=== PATIENT | female | born 1955 | race Caucasian/White ===

== ENCOUNTER 2020-05-28 14:41 | Outpatient (CLI) | payer MEDICARE, SELFPAY ==
--- NOTE | ~2020-05-28 | MM_ITS ---
EXAMINATION: MM screening fermín BI w lizzy HISTORY: Screening TECHNIQUE: Craniocaudal and mediolateral oblique 3-D tomosynthesis images were obtained and synthetic 2-D images were generated. CAD analysis was submitted and interpreted. COMPARISON: Comparison to multiple prior studies sequentially, with oldest reviewed study dated 01/19. BREAST PARENCHYMAL COMPOSITION: There are scattered areas of fibroglandular density. FINDINGS: There is developing focal asymmetry superiorly in the left breast on MLO view. The right br east is stable without evidence for malignancy. IMPRESSION: 1. New focal left breast asymmetry superiorly on MLO view. 2. Additional mammographic views and possible breast ultrasound are recommended. BI-RADS Category 0: Incomplete: Needs additional imaging evaluation. Reviewed, dictated and finalized at location A. IMPRESSION: 1. New focal left breast asymmetry superiorly on MLO view. 2. Additional mammographic views and possible breast ultrasound are recommended . BI-RADS Category 0: Incomplete: Needs additional imaging evaluation.
--- NOTE | ~2020-05-28 | DEXA_ITS ---
Bone Density Report Name: Gretel Gill Age: 64 Sex: Female Ethnicity: White Date of : 1955 Indication: postmenopausal; Referring Provider: DEEPA MONAHAN Study: Bone densitometry was performed. Exam Date: May 28, 2020 Accession number: [id number] Bone Density: Region BMD T-score Z-score Classification Femoral Neck (Left) 0.550 -2.7 -1.1 Osteoporosis Total Hip (Left) 0.791 -1.2 0.1 Osteopenia Total Hip Bilateral Avg 0.850 -0.8 0.6 Normal Femoral Neck (Right) 0.715 -1.2 0.4 Osteopenia Total Hip (Right) 0.907 -0.3 1.0 Normal World Health Organization criteria for BMD impression classify patients as: Normal (T-score at or above -1.0), Osteopenia (T-score between -1.0 and -2.5), or Osteoporosis (T-score at or below -2.5). 10-year Fracture Risk: FRAX not reported because: Some T-score for Spine Total or Hip Total or Femoral Neck at or below -2.5 Previous Exams: Region Exam Age BMD T-score BMD Change BMD Change Date g/cm2 vs Baseline vs Previous Total Hip(Left) 05/28/2020 64 0.791 -1.2 -0.045(-5.4%)# -0.031(-3.7%)* 01/30/2018 62 0.821 -1.0 -0.015(-1.8%)# -0.015(-1.8%)# 11/19/2015 59 0.836 -0.9 Total Hip(Right) 05/28/2020 64 0.907 -0.3 0.020(2.2%)# 0.031(3.5%)* 01/30/2018 62 0.877 -0.5 -0.011(-1.2%)# -0.011(-1.2%)# 11/19/2015 59 0.887 -0.4 *Denotes significance at 95% confidence level, LSC for Total Hip = 0.027 g/cm2 Impression: The patient has osteoporosis, based on the Left Femoral Neck T-score. The BMD for the Total Hip(Left) decreased, changing by -3.7% since the last DXA exam. Discussion: INCREASED RISK OF FRACTURE. BONE DENSITY IS UNDESIRABLY LOW AT ONE OR MORE SKELETAL SITES, CONSISTENT WITH POSTMENOPAUSAL OSTEOPOROSIS. This patient's lowest T-score meets the World Health Organization's (WHO) criteria for osteoporosis at one or more sites (T-score -2.5 or below). In untreated patients, the risk of osteoporotic fracture increases approximately two-fold for each 1.0 SD decrease in T-score. Low bone density is not the only risk factor for fracture; also consider factors such as patient's age, frailty or poor health, risk of falling, risk of injury, previous osteoporotic fracture, family history of osteoporosis, cigarette smoking, low body weight, etc. Not everyone with low bone mineral density has osteoporosis; osteomalacia and other metabolic bone disorders should also be considered. Patients who have osteoporosis should be evaluated for specific diseases and conditions (secondary causes) that may cause or contribute to bone loss. The [place] [employer] (AACE) and Bety
== END 2020-05-28 14:42 | disposition home or self-care (01) ==
PROVIDERS: PCP Emergency Medicine; Visit Provider Emergency Medicine
DX: Z12.31 Encounter for screening mammogram for malignant neoplasm of breast (principal); R92.8 Other abnormal and inconclusive findings on diagnostic imaging of breast; M81.0 Age-related osteoporosis without current pathological fracture; M85.852 Other specified disorders of bone density and structure, left thigh; M85.851 Other specified disorders of bone density and structure, right thigh
CPT/HCPCS: 77063; 77067; 77080

== ENCOUNTER 2020-07-22 13:26 | Outpatient (CLI) | payer MEDICARE, SELFPAY ==
--- NOTE | ~2020-07-22 | MMUS_ITS ---
EXAMINATION: MM diagnostic mammo unilat LT, US breast LT limited HISTORY: Developing focal asymmetry in left breast on MLO screening view of 05/28/2020 TECHNIQUE: Additional 3-D tomosynthesis images of the left breast were performed and synthetic 2-D im ages were generated. CAD analysis was submitted and interpreted. High resolution limited left upper o uter and lower-outer breast ultrasound was performed. COMPARISON: 05/28/2020 bilateral digital screening mammogram FINDINGS: MAMMOGRAPHIC FINDINGS: A circumscribed oval 5 mm opacity is noted in the lateral left mid breast at mid depth. ULTRASOUND: No suspicious solid lesion or shadowing or vascularity is noted. No cyst is identified. IMPRESSION: 1. Probable benign low-density circumscribed 5 mm opacity in outer mid left breast 2. Diagnostic left mammogram follow-up is recommended in 6 months, with ultrasound if required BI-RADS category 3, probably benign findings. Reviewed, dictated and finalized at location A. IMPRESSION: 1. Probable benign low-density circumscribed 5 mm opacity in outer mid left shellie ast 2. Diagnostic left mammogram follow-up is recommended in 6 months, with ultraso und if required BI-RADS category 3, probably benign findings.
== END 2020-07-22 13:27 | disposition home or self-care (01) ==
LOC: ANHIMG 13:27
PROVIDERS: PCP Emergency Medicine; Visit Provider Emergency Medicine
DX: R92.8 Other abnormal and inconclusive findings on diagnostic imaging of breast (principal)
CPT/HCPCS: 76642; 77065

== ENCOUNTER 2020-08-31 11:00 | Outpatient (CLI) | payer MEDICARE, SELFPAY ==
--- NOTE | ~2020-08-31 | US_ITS ---
EXAMINATION: US right upper quadrant DATE: 08/31/2020 11:41 INDICATION: Liver disease. TECHNIQUE: Multiple grayscale and Doppler ultrasound images of the abdomen were obtained. COMPARISON: CT abdomen and pelvis 02/19/15 FINDINGS: The pancreas is obscured by bowel gas. The liver is normal without focal lesion. There is n ormal flow in main portal vein. The gallbladder is absent. The common duct is normal and measures 5 m m. The spleen is normal in size. Abdominal aorta is normal in caliber. Inferior vena cava is normal. Right kidney measures 8.5 x 4.3 x 4.8 cm. Left kidney measures 8.9 x 3.6 x 4.6 cm. No hydronephrosis. IMPRESSION: 1. Mild atrophy of the kidneys. Reviewed, dictated and finalized at location A.
== END 2020-08-31 11:01 | disposition home or self-care (01) ==
PROVIDERS: PCP Emergency Medicine; Visit Provider Emergency Medicine
DX: K76.9 Liver disease, unspecified (principal)
CPT/HCPCS: 76705

== ENCOUNTER 2021-02-24 13:42 | Outpatient (CLI) | payer MEDICARE, SELFPAY ==
--- NOTE | ~2021-02-24 | MMUS_ITS ---
EXAMINATION: MM diagnostic fermín LT w lizzy, US breast LT limited HISTORY: Six-month follow-up for probably benign left breast mass TECHNIQUE: Craniocaudal, mediolateral, and mediolateral oblique 3-D tomosynthesis images of the left breast were performed and synthetic 2-D images were generated. CAD analysis was submitted and interpr eted. High resolution limited left breast ultrasound was performed. COMPARISON: 07/22/2020, 05/28/2020, 01/30/2018 BREAST PARENCHYMAL COMPOSITION: There are scattered areas of fibroglandular density. FINDINGS: MAMMOGRAPHIC FINDINGS: There is a stable 6 mm oval, equal density mass with indistinct margins at the 3:00 location 8 cm fro m the nipple. No suspicious calcification is identified. ULTRASOUND: There is an approximately mass at the 4:00 location 3 cm from the nipple which has sonographic featur es suggestive of clustered microcysts. IMPRESSION: 1. Possible cluster of microcysts in the left breast. 2. Recommend 6 month follow-up left diagnostic mammogram and ultrasound. BI-RADS category 3, probably benign findings. Reviewed, dictated and finalized at location A. IMPRESSION: 1. Possible cluster of microcysts in the left breast. 2. Recommend 6 month follow-up left diagnostic mammogram and ultrasound. BI-RADS category 3, probably benign findings.
== END 2021-02-24 13:43 | disposition home or self-care (01) ==
LOC: ANHIMG 13:43
PROVIDERS: PCP Emergency Medicine; Visit Provider Emergency Medicine
DX: R92.8 Other abnormal and inconclusive findings on diagnostic imaging of breast (principal)
CPT/HCPCS: 76642; 77061; 77065; G0279

== ENCOUNTER 2021-07-21 08:51 | Outpatient (CLI) | payer MEDICARE, SELFPAY ==
--- NOTE | ~2021-07-21 | XR_ITS ---
XR hip BI wo pelvis DATE: 07/21/2021 09:53 INDICATION: Hip pain. History of bone graft of right leg TECHNIQUE: AP and lateral views of each hip COMPARISON: None FINDINGS: There is deformity of the lateral aspect of the right iliac crest likely due to this being a donor site for clinically reported bone graft. Old healed fracture of right mid femoral shaft. Diffuse osteopenia. Rotatory levoscoliosis and severe degenerative disc disease of the lumbar spine. Mild bilateral hip osteoarthritic arthritis. No fracture, dislocation, avascular necrosis or bone beth truction of either hip is detected. There are some soft tissue calcifications at the hips, greater on the right. IMPRESSION: Rotatory levoscoliosis and severe degenerative disc disease of the lumbar spine Osteopenia Mild bilateral hip osteoarthritis Old healed right femoral shaft fracture Right iliac crest donor site changes Reviewed, dictated and finalized at location A.
--- NOTE | ~2021-07-21 | XR_ITS ---
XR knee RT 2V DATE: 07/21/2021 09:54 INDICATION: Chronic right knee pain TECHNIQUE: AP and lateral views COMPARISON: 02/19/2015 right knee FINDINGS: There is an old healed fracture of the midshaft of the right femur. There is tricompartment osteoarthritis, most prominent at the patellofemoral joint. Mild suprapatellar knee joint effusion. Again noted is a calcification measuring up to 8 mm, overlyin g the suprapatellar bursa. No fracture or dislocation, periosteal reaction or bone destruction, radiopaque intra-articular loose body or chondrocalcinosis is noted otherwise. IMPRESSION: Tricompartment osteoarthritis, most prominent at the patellofemoral compartment Mild suprapatellar knee joint effusion and chronic suprapatellar calcified loose body Reviewed, dictated and finalized at location A. IMPRESSION: Tricompartment osteoarthritis, most prominent at the patellofemoral compartment Mild suprapatellar knee joint effusion and chronic suprapatellar calcified loos e body
--- NOTE | ~2021-07-21 | XR_ITS ---
XR cervical spine 4-5V DATE: 07/21/2021 09:53 INDICATION: Neck pain TECHNIQUE: AP, open-mouth, lateral, swimmer views COMPARISON: None FINDINGS: There is prominent reversal cervical curvature. There is dextroscoliosis. There is mild anterolisthesis at C2-3 and 3 mm anterolisthesis at C3-4 and 3.8 mm anterolisthesis at C4-5. There is mild to moderate degenerative disc disease and spurring at C4-5. There is severe degenerative disc disease at C5-6 and C6-7 with posterior spurring. There is mild anterolisthesis at C7-T1. There is uncovertebral joint spurring of the mid and lower cervical spine, particularly at C3-4, C4-5 , C5-6 and C6-7. There is prominent degenerative change at the apophyseal joints as well. Diffuse osteopenia. IMPRESSION: Reversal of cervical curvature and dextroscoliosis Anterolisthesis at multiple levels, most pronounced at C4-5 Degenerative disease, particularly severe at C5-6 and C6-7 Degenerative changes at apophyseal and uncovertebral joints Reviewed, dictated and finalized at location A.
--- NOTE | ~2021-07-21 | XR_ITS ---
XR lumbar spine 2-3V DATE: 07/21/2021 09:52 INDICATION: Chronic back pain TECHNIQUE: AP, lateral views COMPARISON: December 09, 2014 MRI lumbar spine FINDINGS: There is prominent rotatory levoscoliosis of the lumbar spine with severe degenerative disc disease throughout the lumbar and lumbosacral spine. Diffuse osteopenia is noted otherwise. No fracture or bone destruction is evident. The sacroiliac joints are intact with some degenerative change. IMPRESSION: Prominent rotatory levoscoliosis and severe degenerative disc disease Osteopenia Reviewed, dictated and finalized at location A. IMPRESSION: Prominent rotatory levoscoliosis and severe degenerative disc disea se Osteopenia
--- NOTE | ~2021-07-21 | XR_ITS ---
XR thoracic spine 3V DATE: 07/21/2021 09:52 INDICATION: Back pain TECHNIQUE: AP, lateral and swimmer views COMPARISON: None FINDINGS: There is diffuse osteopenia. There is minimal levoscoliosis of the upper thoracic spine and dextroscoliosis of the lower thoracic spine. There is rotatory levoscoliosis of the lumbar spine. No thoracic spine fracture or bone destruction is evident. The thoracic pedicles are intact. There is mild degenerative spurring of the thoracic spine. No paraspinal soft tissue thickening. IMPRESSION: Scoliosis and mild degenerative change Osteopenia Reviewed, dictated and finalized at location A.
--- NOTE | ~2021-07-21 | XR_ITS ---
XR knee LT 2V 07/21/2021 09:53 Indication: Left knee pain Procedure: 2 views left knee Comparison: No prior studies for comparison. Findings: There is mild osteoarthritis of the left knee. No fracture, subluxation or dislocation. No significant joint effusion. No foreign bodies. Impression: 1: Mild osteoarthritis of the left knee. Reviewed, dictated and finalized at location A. Impression: 1: Mild osteoarthritis of the left knee.
== END 2021-07-21 08:52 | disposition home or self-care (01) ==
LOC: ANHIMG 08:57
PROVIDERS: PCP Emergency Medicine; Visit Provider Pain Medicine Interventional Pain Medicine
DX: G89.4 Chronic pain syndrome (principal); M54.16 Radiculopathy, lumbar region; F17.210 Nicotine dependence, cigarettes, uncomplicated; M54.12 Radiculopathy, cervical region; M54.15 Radiculopathy, thoracolumbar region; F33.1 Major depressive disorder, recurrent, moderate; F41.1 Generalized anxiety disorder; M16.0 Bilateral primary osteoarthritis of hip; M85.88 Other specified disorders of bone density and structure, other site; M51.36 Other intervertebral disc degeneration, lumbar region; M41.9 Scoliosis, unspecified; M50.30 Other cervical disc degeneration, unspecified cervical region; M17.0 Bilateral primary osteoarthritis of knee
CPT/HCPCS: 72050; 72072; 72100; 73521; 73560

== ENCOUNTER 2022-03-11 16:35 | Emergency (ER) | payer MEDICARE, SELFPAY ==
--- NOTE | ~2022-03-11 | XR_ITS ---
EXAMINATION: XR chest 2V Exam Date/Time: 03/11/2022 17:17 CDT CLINICAL HISTORY: COUGHING UP PHLEGM X 4 DAYS. (SMOKER). Comparison: None available. RESULT: Lines, tubes, and devices: None. Lungs and pleura: Clear. Cardiomediastinal silhouette: Unremarkable cardiomediastinal silhouette. Other: No acute osseous or upper abdominal finding. IMPRESSION: No acute cardiopulmonary process Reviewed, dictated and finalized at location K.
[2022-03-11 16:40] VITALS: BP 134/70; PULSE 103; RESP 16; TEMP 36.3; O2SAT 99
--- NOTE | 2022-03-11 17:08 | ED.GENADULT ---
HPI - General Adult General Chief complaint: Upper Respiratory Infection Stated complaint: congestion Source: patient Mode of arrival: ambulatory Limitations: no limitations History of Present Illness HPI narrative: Patient presents for evaluation of respiratory symptoms. Symptom onset 4 days ago. Initial symptom was rhinorrhea that she thought was related to a common cold. Since that time she has developed a productive cough of yellow sputum, with exertional dyspnea and sore throat. No fever, chills, nausea, vomiting, diarrhea. No recent sick contacts. No personal hx of COVID. She has received COVID vaccination. She smokes about 1 ppd. She tried nyquil and dayquil but did not feel that they made a considerable difference in her symptoms. She has received a flu shot this season. No additional complaints or concerns. Related Data Home Medications Medication Instructions Recorded Confirmed albuterol sulfate 90 mcg/actuation 1 puff INHALATION Q4H PRN 08/11/20 03/11/22 aerosol inhaler alendronate 35 mg tablet 35 mg PO WEEKLY 08/11/20 03/11/22 amlodipine 10 mg tablet 10 mg PO DAILY 08/11/20 03/11/22 cholecalciferol (vitamin D3) 1,250 1,250 mcg PO WEEKLY 08/11/20 03/11/22 mcg (50,000 unit) tablet hydrocodone 10 mg-acetaminophen 1 tablet PO Q8H PRN 08/11/20 03/11/22 325 mg tablet hydroxyzine pamoate 50 mg capsule 50 mg PO ONCE cap 08/11/20 03/11/22 losartan 100 1 tablet PO DAILY 08/11/20 03/11/22 mg-hydrochlorothiazide 25 mg tablet umeclidinium 62.5 mcg/actuation 1 inhalation INHALATION DAILY 08/11/20 03/11/22 blister powder for inhalation Allergies Allergy/AdvReac Type Severity Reaction Status Date / Time No Known Allergies Allergy Verified 03/11/22 17:01 Review of Systems Review of Systems: CONSTITUTIONAL: Denies fever, chills, or sweats. EYES: Denies visual changes, redness, or discharge. ENT: Reports rhinorrhea and sore throat. Denies otalgia. CARDIOVASCULAR: Denies chest pain, palpitations, or edema. RESPIRATORY: Reports productive cough of yellow/green sputum with associated exertional dyspnea GASTROINTESTINAL: Denies abdominal pain, nausea, vomiting, or diarrhea. GENITOURINARY: Denies dysuria or hematuria. SKIN: Denies rash or itching. MUSCULOSKELETAL: Denies back pain, joint pain, or myalgia. NEUROLOGIC: Denies headache, numbness, dizziness, or weakness. PSYCHIATRIC: Denies anxiety or depression. [facility] Past Medical History Medical History (Updated 03/11/22 @ 17:38 by EASTON CrockerP, ) Arthritis Hypertension Surgical History Surgical History History of cholecystectomy Family History Family History Father Hypertension Sibling Family history of liver disease Mother Family history unknown Social History Social History Smoking packs per day: 1 Smoking cigarettes per day: 20.0 Smoking status: Current every day smoker Alcohol intake: never Substance use: never Living arrangements: with family Gender identity (if verbalized by the patient): Female Sexual Orientation (if Verbalized by the Patient): Straight or Heterosexual Spiritual care concerns: No Exam Narrative: GENERAL: Well-appearing, well-nourished, and in no acute distress. HEAD: Normocephalic, atraumatic. EYES: PERRLA and EOMI. ENT: Nares clear, no rhinorrhea or epistaxis. Mucous membranes moist. Oropharynx without tonsillar hypertrophy exudate or other lesions. Bilateral TMs pearly chu nonbulging NECK: Supple. No adenopathy or masses. No carotid bruits or JVD CHEST: Clear to auscultation. No respiratory distress. No wheezes rales or rhonchi HEART: Regular rate and rhythm. No murmur heard. Normal peripheral pulses. ABDOMEN: Soft, nontender, nondistended, normal active bowel sounds. EXTREMITIES: Normal range of m
== END 2022-03-11 18:20 | disposition home or self-care (01) ==
PROVIDERS: Emergency Provider Nurse Practitioner
DX: J06.9 Acute upper respiratory infection, unspecified (principal); I10 Essential (primary) hypertension; F17.210 Nicotine dependence, cigarettes, uncomplicated; Z79.891 Long term (current) use of opiate analgesic; Z20.822 Contact with and (suspected) exposure to COVID-19
CPT/HCPCS: 71046; 87426; 87804; 99213; C9803; G0463

== ENCOUNTER 2022-05-17 13:49 | Outpatient (CLI) | payer MEDICARE, SELFPAY ==
--- NOTE | ~2022-05-17 | XR_ITS ---
XR lumbar spine 2-3V 05/17/2022 14:14 Indication: Radiculopathy. Back pain. Procedure: 3 views lumbar spine Comparison: 07/21/2021 Findings: There is severe levoscoliosis of the lumbar spine with advanced disc narrowing and endplate hypertrophy at all lumbar levels. There is lateral listhesis at L2-3 and L3-4 to the left. There is advanced lower facet hypertrophy. Sacral foramen are symmetric. No acute fracture or traumatic alignm ent. There is atherosclerosis. Impression: 1: Severe lumbar spondylosis with levoscoliosis. Reviewed, dictated and finalized at location A. Impression: 1: Severe lumbar spondylosis with levoscoliosis.
--- NOTE | ~2022-05-17 | XR_ITS ---
XR thoracic spine 3V 05/17/2022 14:14 Indication: Back pain Procedure: 3 views thoracic spine Comparison: 07/21/2021 Findings: There is dextroscoliosis of the thoracic spine centered at T9 measuring 16 degrees. Vertebr al body heights are preserved. Surrounding osseous structures are unremarkable. No significant altera tion of alignment compared to prior studies. Surrounding osseous structures within normal limits. The re is mild multilevel thoracic spondylosis. Impression: 1: Mild thoracic spondylosis with dextroscoliosis. No significant change from prior examination. Reviewed, dictated and finalized at location A. Impression: 1: Mild thoracic spondylosis with dextroscoliosis. No significant change from p rior examination.
== END 2022-05-17 13:50 | disposition home or self-care (01) ==
PROVIDERS: Visit Provider Pain Medicine Interventional Pain Medicine
DX: M54.17 Radiculopathy, lumbosacral region (principal); M54.14 Radiculopathy, thoracic region; M43.04 Spondylolysis, thoracic region; M41.84 Other forms of scoliosis, thoracic region; M47.816 Spondylosis without myelopathy or radiculopathy, lumbar region
CPT/HCPCS: 72072; 72100

== ENCOUNTER 2022-06-16 15:26 | Emergency (ER) | payer MEDICARE, SELFPAY ==
[2022-06-16 15:33] VITALS: BP 134/77; PULSE 96; RESP 18; TEMP 36.1; O2SAT 99
--- NOTE | 2022-06-16 15:59 | ED.FEMALEGU ---
HPI - Female Genitourinary General Chief complaint: Urogenital-Female Stated complaint: poss uti Time Seen by Provider: 06/16/22 15:48 Source: patient, RN notes reviewed and old records reviewed Mode of arrival: ambulatory Limitations: no limitations History of Present Illness HPI Narrative: 66 year old female who presents to [facility] with complaints of urine having foul odor, voiding in decreased amounts, frequency and urinary urgency for the past 1.5 weeks. Patient reports that she generally has chronic back pain and has erin having for the past few days pain in left flank area. Patient states no know fever, chills or sweats or any nausea vomiting or any abdominal pain. Patient states history of UTI's, pain is rated 6/10 has taken AZO for her symptoms with last dose 2 days ago report that she has had fatigue also.. MD elicited complaint: UTI and back pain Pertinent past history: recurrent UTIs Onset (ago): week(s) (1.5) Location of symptoms: flank (left) Related Data Home Medications Medication Instructions Recorded Confirmed amlodipine 10 mg tablet 10 mg PO DAILY 06/16/22 06/16/22 celecoxib 200 mg capsule 200 mg PO DAILY 06/16/22 06/16/22 cyclobenzaprine 10 mg tablet 10 mg PO BID 06/16/22 06/16/22 hydrocodone 10 mg-acetaminophen 1 tablet PO TID PRN pain 06/16/22 06/16/22 325 mg tablet losartan 100 1 tablet PO DAILY 06/16/22 06/16/22 mg-hydrochlorothiazide 25 mg tablet pregabalin 75 mg capsule 75 mg PO BID 06/16/22 06/16/22 Allergies Allergy/AdvReac Type Severity Reaction Status Date / Time No Known Allergies Allergy Verified 03/11/22 17:01 Review of Systems Review of Systems: CONSTITUTIONAL: Denies fever, chills, or sweats. EYES: Denies visual changes, redness, or discharge. ENT: Denies rhinorrhea, congestion, sore throat, or otalgia. CARDIOVASCULAR: Denies chest pain, palpitations, or edema. RESPIRATORY: Denies cough or dyspnea. GASTROINTESTINAL: Denies abdominal pain, nausea, vomiting, or diarrhea. GENITOURINARY: Denies dysuria or hematuria, urinary frequency, urgency, decrease amounts SKIN: Denies rash or itching. MUSCULOSKELETAL: Chronic back pain,no acute joint pain, or myalgia.states some left flank pain for the past few days and also fatigue NEUROLOGIC: Denies headache, numbness, or weakness. PSYCHIATRIC: Denies anxiety or depression. All systems reviewed & are unremarkable except as noted in HPI and below PMFSH Past Medical History Medical History (Updated 06/16/22 @ 16:22 by Sariah Heller NP) Arthritis Hypertension UTI (urinary tract infection) Surgical History Surgical History (Updated 06/16/22 @ 16:22 by Sariah Heller NP) History of cholecystectomy History of hip surgery Family History Family History Father Hypertension Sibling Family history of liver disease Mother Family history unknown Social History Social History (Updated 06/16/22 @ 16:20 by Sariah Heller NP) Smoking packs per day: 1 Smoking cigarettes per day: 20.0 Years smoked: 46 Smoking pack-years: 46.00 Smoking status: Current every day smoker Alcohol intake: never Substance use: never Gender identity (if verbalized by the patient): Female Sexual Orientation (if Verbalized by the Patient): Straight or Heterosexual Spiritual care concerns: No Comments At time of signature, agree with nursing past medical, surgical, social and family history. There is no relevant family history pertinent to the presenting complaint Exam Narrative: GENERAL: Well-appearing, well-nourished, and in no acute distress. HEAD: Normocephalic, atraumatic. EYES: PERRLA and EOMI. ENT: Nares clear, no rhinorrhea or epistaxis. Mucous membranes moist.TM's normal with good light reflex, throat pink with no lesions or exudates NECK: Supple. no lymphadenopathy CHEST: Clear to auscultation. No respiratory distress.SAO2 99% on room air HEART: Regula
== END 2022-06-16 16:15 | disposition home or self-care (01) ==
PROVIDERS: Emergency Provider Registered Nurse
DX: N39.0 Urinary tract infection, site not specified (principal); I10 Essential (primary) hypertension; F17.210 Nicotine dependence, cigarettes, uncomplicated; M19.90 Unspecified osteoarthritis, unspecified site
CPT/HCPCS: 81003; 87086; 99213; G0463

== ENCOUNTER 2023-06-11 10:16 | Outpatient (CLI) | payer MEDICARE, SELFPAY ==
--- NOTE | ~2023-06-11 | XR_ITS ---
AP and lateral views of the bilateral hips Clinical history: Pain Findings: No acute fracture or dislocation is seen. Osseous alignment is anatomic. Bilateral hip and SI joint spaces are preserved. Soft tissues are unremarkable. Impression: No significant abnormality is seen. Reviewed, dictated and finalized at location . Impression: No significant abnormality is seen.
--- NOTE | ~2023-06-11 | XR_ITS ---
EXAMINATION: XR lumbar spine 2-3V DATE: 06/11/2023 10:38 INDICATION: Lumbar radiculopathy TECHNIQUE: Anteroposterior and lateral views of the lumbar spine, and cone-down lateral view of the l umbosacral junction were obtained. COMPARISON: 05/17/2022 FINDINGS: 50 degrees lumbar levoscoliosis with associated rotational component measured between T12 and L3. Com pensatory 35 degrees dextroscoliosis between L3 and S1. Unchanged 6-9 mm left lateral listhesis of L2 on L3 and L3 on L4. There is a kyphosis at the thoracolumbar junction/upper lumbar spine. Vertebral body heights are normal. Severe right-sided disc height loss at L1-L2 and L2-L3, severe left-sided di sc height loss at L4-L5 and more diffuse severe disc height loss at L3-L4 and L5-S1. Severe facet ost eoarthritis at the right side of the upper lumbar and left-sided lower lumbar spine. Mild left and mo derate right sacroiliac osteoarthritis. IMPRESSION: 1. No significant interval change in severe S-shaped scoliosis of the lumbar spine with severe spondy losis. Reviewed, dictated and finalized at location B. IMPRESSION: 1. No significant interval change in severe S-shaped scoliosis of the lumbar sp ine with severe spondylosis.
== END 2023-06-11 10:17 | disposition home or self-care (01) ==
PROVIDERS: Visit Provider Pain Medicine Interventional Pain Medicine
DX: M54.17 Radiculopathy, lumbosacral region (principal)
CPT/HCPCS: 72100; 73521

== ENCOUNTER 2024-05-14 14:30 | Emergency (ER) | payer MEDICARE, SELFPAY ==
--- NOTE | ~2024-05-14 | XR_ITS ---
EXAMINATION: XR shoulder LT min 2V DATE: 05/14/2024 15:33 INDICATION: Pain and popping at the left shoulder TECHNIQUE: AP internally and externally rotated, AP oblique externally rotated and transscapular Y vi ews of the left shoulder were obtained. COMPARISON: None FINDINGS: Mild upper thoracic levocurvature. Normal alignment at the left shoulder. No acute fracture. Glenohu meral joint is normal. Mild osteoarthritis at the left acromioclavicular joint with chronic appearing tiny loose body versus nonunited fracture fragment in the region of the cephalad joint capsule. Mode rate lower cervical spondylosis. Visualized portions of the lungs are clear. Soft tissues are unremar kable. IMPRESSION: No acute osseous abnormality. Reviewed, dictated and finalized at location A.
[2024-05-14 14:38] VITALS: BP 143/85; PULSE 103; RESP 16; TEMP 36.6; O2SAT 96
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
== END 2024-05-14 16:20 | disposition home or self-care (01) ==
PROVIDERS: Emergency Provider Registered Nurse
DX: M25.512 Pain in left shoulder (principal); F17.210 Nicotine dependence, cigarettes, uncomplicated; M19.90 Unspecified osteoarthritis, unspecified site; I10 Essential (primary) hypertension; F41.9 Anxiety disorder, unspecified; F32.A Depression, unspecified
CPT/HCPCS: 73030; 99213; G0463

== ENCOUNTER 2024-06-23 11:36 | Outpatient (CLI) | payer MEDICARE, SELFPAY ==
--- NOTE | ~2024-06-23 | XR_ITS ---
XR hip RT min 2V Ordering provider: Darrick Hoskins MD History: . PAIN IN HIPS, RADICULOPATHY THORACIC AND LUMBAR . Comparison: June 11, 2023 FINDINGS: BONES: No acute fracture or dislocation. Old healed fracture in the midshaft of the femur. HIP JOINT SPACES: Narrowing of the right hip joint. SACROILIAC JOINT SPACES/LUMBAR SPINE: The sacroiliac joint spaces are normal. Mild degenerative sanchez es of the visualized lower lumbar spine. PUBIC SYMPHYSIS: Pubic symphysitis. SOFT TISSUES: Normal. IMPRESSION: No acute osseous abnormality pelvis and right hip. Severe right hip osteoarthritic changes. Reviewed, dictated and finalized at location A.
--- NOTE | ~2024-06-23 | XR_ITS ---
3 VIEWS THORACIC SPINE Ordering provider: Darrick Hoskins MD History: . PAIN IN HIPS, RADICULOPATHY THORACIC AND LUMBAR . Comparison: May 17, 2022 FINDINGS: VERTEBRAL BODIES: Normal height and alignment. No visible fracture or subluxation. S-shaped scoliosis seen in the lower thoracic and lumbar area with dextroscoliosis in the thoracic area unchanged from previous examination. DISK SPACES: Narrowing at multiple levels. SOFT TISSUES: Normal. IMPRESSION: No acute osseous abnormality of the thoracic spine. No significant change from previous examination. Reviewed, dictated and finalized at location A.
--- NOTE | ~2024-06-23 | XR_ITS ---
XR hip LT min 2V Ordering provider: Darrick Hoskins MD History: . PAIN IN HIPS, RADICULOPATHY THORACIC AND LUMBAR . Comparison: None. FINDINGS: BONES: No acute fracture or dislocation. HIP JOINT SPACES: Normal. SACROILIAC JOINT SPACES/LUMBAR SPINE: The sacroiliac joint spaces are normal. Mild degenerative sanchez es of the visualized lower lumbar spine. PUBIC SYMPHYSIS: Normal. SOFT TISSUES: Normal. IMPRESSION: No acute osseous abnormality pelvis and left hip. Reviewed, dictated and finalized at location A.
--- NOTE | ~2024-06-23 | XR_ITS ---
3 VIEWS LUMBAR SPINE Ordering provider: Darrick Hoskins MD History: . PAIN IN HIPS, RADICULOPATHY THORACIC AND LUMBAR . Comparison: June 11, 2023 FINDINGS: VERTEBRAL BODIES:Levoscoliosis. Old compression fracture of L4 unchanged No visible fracture or sublu xation. Degenerative changes of the spine. DISK SPACES: Narrowing of all disc spaces except L4-L5 and L5-S1. SOFT TISSUES: Atherosclerotic changes of the abdominal aorta. IMPRESSION: No acute osseous abnormality lumbar spine. Degenerative changes of the spine with levoscoliosis. No change from previous examination. Reviewed, dictated and finalized at location A. IMPRESSION: No acute osseous abnormality lumbar spine. Degenerative changes of the spine with levoscoliosis. No change from previous e xamination.
== END 2024-06-23 11:37 | disposition home or self-care (01) ==
PROVIDERS: Visit Provider Pain Medicine Interventional Pain Medicine
DX: M25.552 Pain in left hip (principal); M54.14 Radiculopathy, thoracic region; M54.17 Radiculopathy, lumbosacral region; F17.210 Nicotine dependence, cigarettes, uncomplicated; M51.36 Other intervertebral disc degeneration, lumbar region; M16.11 Unilateral primary osteoarthritis, right hip
CPT/HCPCS: 72074; 72100; 73502

== ENCOUNTER 2024-10-17 12:14 | Outpatient (CLI) | payer MEDICARE, SELFPAY ==
--- NOTE | ~2024-10-17 | XR_ITS ---
EXAMINATION: XR cervical spine min 6V DATE: 10/17/2024 12:51 INDICATION: Cervical radiculopathy. TECHNIQUE: 5 views of cervical spine including flexion and extension views were obtained. COMPARISON: None. FINDINGS: There is 3 mm anterolisthesis of C3 on C4 and C4 on C5 that mildly reduces with extension. There is 2 mm retrolisthesis of C5 on C6. There is kyphosis of cervical spine. There is 9 degrees dex trocurvature of cervical spine. Vertebral body heights are normal. There is mildly decreased disc hei ght at C3-C4 and C4-C5 and severely decreased disc height at C5-C6 and C6-C7. 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 There is multilevel mild face t joint osteoarthritis. There is mild central canal stenosis at C3-C4, C4-C5, C5-C6, and C6-C7. No pr evertebral soft tissue swelling. IMPRESSION: 1. Severe cervical spondylosis. Reviewed, dictated and finalized at location A. E EDUCATOR
--- OUTSIDE RECORDS SUMMARY | 2024-10-17 12:53 | XMS_ITS | Continuity of Care Document ---
Author Organization [facility] Address [address] [place] [address] [place] [address] Phone Care Team Providers Care Brewing Technician Name Role Phone Km Rios MD Unavailable Unavailable Allergies, Adverse Reactions, Alerts Substance Reaction Status Criticality No Known Allergies Active No Inform ation Medications Medication Instructions Dosage Effective Dates (start - stop) Status Comments hydrocodone 10 mg-acetaminophen 325 mg tablet take 1 by Oral route 3 times every day as needed 1 - Active PRN for pain, avoid driving or operate machines alendronate 70 mg tablet take 1 tablet by oral route every week in the morning, at least 30 min before first food, beverage, or medication of day 70 MG - Active Lyrica 75 mg capsule take 1 capsule by oral route 2 times every day 75 MG - Active avoid driving or operate machines Ventolin HFA 90 mcg/actuation aerosol inhaler inhale 2 puff by inhalation route every 4 - 6 hours as needed as needed - Active PRN for SOB Incruse Ellipta 62.5 mcg/actuation powder for inhalation inhale 1 puff by inhalation route every day at the same time each day 62.5 MCG - Active Vistaril 50 mg capsule take 1 capsule by oral route every bedtime as needed 50 MG - Active avoid driving or operate machines Norvasc 10 mg tablet take 1 tablet (10MG) by oral route every day - Active losartan 100 mg-hydrochlorothia zide 25 mg tablet take 1 tablet by oral route every day 1.00 tablet - Active Vitamin D2 1,250 mcg (50,000 unit) capsule take 1 capsule by oral route every week - Active Procedures Procedure Date OFFICE/OUTPATIENT VISIT, EST OFFICE/OUTPATIENT VISIT, EST OFFICE/OUTPATIENT VISIT, EST OFFICE/OUTPATIENT VISIT, EST OFFICE/OUTPATIENT VISIT, EST OFFICE/OUTPATIENT VISIT, EST OFFICE/OUTPATIENT VISIT, EST OFFICE/OUTPATIENT VISIT, EST OFFICE/OUTPATIENT VISIT, EST OFFICE/OUTPATIENT VISIT, EST OFFICE/OUTPATIENT VISIT, EST OFFICE/OUTPATIENT VISIT, EST OFFICE/OUTPATIENT VISIT, EST PREV VISIT, EST, 65 & OVER OFFICE/OUTPATIENT VISIT, EST OFFICE/OUTPATIENT VISIT, EST OFFICE/OUTPATIENT VISIT, EST OFFICE/OUTPATIENT VISIT, EST OFFICE/OUTPATIENT VISIT, EST OFFICE/OUTPATIENT VISIT, EST OFFICE/OUTPATIENT VISIT, EST OFFICE/OUTPATIENT VISIT, EST OFFICE/OUTPATIENT VISIT, EST OFFICE/OUTPATIENT VISIT, EST PREV VISIT, EST, 65 & OVER OFFICE/OUTPATIENT VISIT, EST OFFICE/OUTPATIENT VISIT, EST OFFICE/OUTPATIENT VISIT, EST OFFICE/OUTPATIENT VISIT, EST OFFICE/OUTPATIENT VISIT, EST OFFICE/OUTPATIENT VISIT, EST OFFICE/OUTPATIENT VISIT, EST OFFICE/OUTPATIENT VISIT, EST OFFICE/OUTPATIENT VISIT, EST OFFICE/OUTPATIENT VISIT, EST OFFICE/OUTPATIENT VISIT, EST PREV VISIT, EST, AGE 40-64 OFFICE/OUTPATIENT VISIT, EST OFFICE/OUTPATIENT VISIT, EST OFFICE/OUTPATIENT VISIT, EST OFFICE/OUTPATIENT VISIT, EST OFFICE/OUTPATIENT VISIT, EST OFFICE/OUTPATIENT VISIT, EST OFFICE/OUTPATIENT VISIT, EST OFFICE/OUTPATIENT VISIT, EST OFFICE/OUTPATIENT VISIT, EST OFFICE/OUTPATIENT VISIT, EST OFFICE/OUTPATIENT VISIT, EST PREV VISIT, EST, AGE 40-64 OFFICE/OUTPATIENT VISIT, EST OFFICE/OUTPATIENT VISIT, EST OFFICE/OUTPATIENT VISIT, EST OFFICE/OUTPATIENT VISIT, EST OFFICE/OUTPATIENT VISIT, EST OFFICE/OUTPATIENT VISIT, EST OFFICE/OUTPATIENT VISIT, EST OFFICE/OUTPATIENT VISIT, EST OFFICE/OUTPATIENT VISIT, EST OFFICE/OUTPATIENT VISIT, EST OFFICE/OUTPATIENT VISIT, EST OFFICE/OUTPATIENT VISIT, EST OFFICE/OUTPATIENT VISIT, EST OFFICE/OUTPATIENT VISIT, EST OFFICE/OUTPATIENT VISIT, EST OFFICE/OUTPATIENT VISIT, EST OFFICE/OUTPATIENT VISIT, EST PREV VISIT, EST, AGE 40-64 OFFICE/OUTPATIENT VISIT, EST OFFICE/OUTPATIENT VISIT, EST OFFICE/OUTPATIENT VISIT, EST OFFICE/OUTPATIENT VISIT, EST OFFICE/OUTPATIENT VISIT, EST OFFICE/OUTPATIENT VISIT, EST OFFICE/OUTPATIENT VISIT, EST OFFICE/OUTPATIENT VISIT, EST OFFICE/OUTPATIENT VISIT, EST OFFICE/OUTPATIENT VISIT, EST OFFICE/OUTPATIENT VISIT, EST OFFICE/OUTPATIENT VISIT, EST PREV VISIT, EST, AGE 40-64 OFFICE/OUTPATIENT VISIT, EST OFFICE/OUTPATIENT VISIT, EST OFFICE/OUTPATIENT VISIT, EST OFFICE/OUTPATIENT VISIT, NEW Advance Directives Directive Yes / No Effective Date File Name No Information Encounters Encounter Description Practice Location Reason(s) For Visit Diagnoses Date Provider Providers Copied on Encounter OFFICE/OUTPA TIENT VISIT, [facility], [address], [place], [address], [place] tel:[phone] [facility] HLP (chief complaint)o steoporosis 1 (chief complaint)p ain (chief complaint) HyperlipidemiaOste oporosisPolyp of colonChronic pain syndrome 1 Gabriel Barbour. [address], [place], [address]. tel:[phone] OFFICE/OUTPA TIENT VISIT, [facility], [address], [place], [address], [place] tel:[phone] [facility] colon polyp1 (chief complaint)o steoporosis 1 (chief complaint)p ain (chief complaint)w eight gain1 (chief complaint)H LP (chief complaint) Polyp of colonHyperlipidemi aLumbago with sciatica, left sideAbnormal weight gainOsteoporosis 1 Gabriel Barbour. [address], [place], [address]. tel:[phone] OFFICE/OUTPA TIENT VISIT, [facility], [address], [place], [address], [place] tel:[phone] [facility] pain (chief complaint)o steoporosis 1 (chief complaint)c olon polyp1 (chief complaint) Polyp of colonOsteoporosisC hronic pain syndrome 1 Gabriel Mosher [address], [place], [address]. tel:[phone] OFFICE/OUTPA TIENT VISIT, [facility], [address], [place], [address], [place] tel:[phone] [facility] pain1 (chief complaint)c olon polyp1 (chief complaint) Chronic pain syndromePolyp of colon 1 Gabriel Barbour. [address], [place], [address]. tel:[phone] OFFICE/OUTPA TIENT VISIT, [facility], [address], [place], [address], tel:[phone] [facility] HLP (chief complaint)L Ft (chief complaint)p ain (chief complaint)C OPD1 (chief complaint) HyperlipidemiaLive r diseaseInconclusiv e mammogramChronic pain syndromeEmphysema 1 Gabriel Barbour. [address], [address], [place], [address]. tel:[phone] OFFICE/OUTPA TIENT VISIT, [facility], [address], [place], [address], [place] tel:[phone] [facility] pain (chief complaint)m ammo (chief complaint)n europathy1 (chief complaint) Chronic pain syndromeHyperlipid emiaPolyp of colonInconclusive mammogramPain in unspecified hand 1 Gabriel Barbour. [address], [place], [address]. tel:[phone] OFFICE/OUTPA TIENT VISIT, [facility], [address], [place], [address], [place] tel:[phone] [facility] chronic pain1 (chief complaint)H LP (chief complaint) NeuropathyHyperlip idemia 1 Gabriel Barbour. [address], [address], [place], [address]. tel:[phone] OFFICE/OUTPA TIENT VISIT, [facility], [address], [place], [address], [place] tel:[phone] [facility] pain (chief complaint) Chronic pain syndromeNeuropathy 1 Gabriel Barbour. [address], [place], [address]. tel:[phone] OFFICE/OUTPA TIENT VISIT, [facility], [address], [place], [address], [place] tel:[phone] [facility] pain1 (chief complaint)H LP (chief complaint) HyperlipidemiaChro uzma pain syndrome 0 Rios Km. [address], [place], [address]. tel:[phone] OFFICE/OUTPA TIENT VISIT, [facility], [address], [place], [address], tel:[phone] [facility] pain (chief complaint)l iver1 (chief complaint)k idney1 (chief complaint) Chronic pain syndromeLiver diseaseAtrophy of kidney 0 Rios Km. [address], [place], [address]. tel:[phone] OFFICE/OUTPA TIENT VISIT, [facility], [address], [place], [address], tel:[phone] [facility] HLP (chief complaint)p ain (chief complaint)L FT (chief complaint)c olon polyp1 (chief complaint)i nsomnia1 (chief complaint) HyperlipidemiaChro uzma pain syndromeLiver diseaseInsomniaPol yp of colon 0 Rios Km[address], [place], [address]. tel:[phone] OFFICE/OUTPA TIENT VISIT, [facility], [address] [place], [address], [place] tel:[phone] [facility] HLP (chief complaint)L FT (chief complaint)w bc (chief complaint) HyperlipidemiaLive r diseaseLeukocytosi sCoronary artery disease of knik coronary artery without angina pectoris 0 Rios Km[address], [place], [address]. tel:[phone] OFFICE/OUTPA TIENT VISIT, [facility], [address] [place], [address], [place] tel:[phone] [facility] pain (chief complaint)c olon polyp1 (chief complaint)t obacco (chief complaint)C AD (chief complaint)b reast nodule1 (chief complaint) Essential (primary) hypertensionInconc lusive mammogramCoronary artery disease of knik coronary artery without angina pectorisChronic pain syndromeEmphysema 0 Rios Km. [address], [place], [address]. tel:[phone] PREV VISIT, EST, 65 & OVER [facility], [address], [place], [address], [place] tel:[phone] [facility] Medicine physical (chief complaint) Encounter for general adult medical exam w abnormal findingsInsomniaEm physemaOsteoporosi sEssential (primary) hypertensionChroni c pain syndrome 0 Gabriel Km. [address], [place], [address]. tel:[phone] OFFICE/OUTPA TIENT VISIT, [facility], [address], [place], [address], [place] tel:[phone] [facility] insomnia1 (chief complaint)p ain1 (chief complaint)o steoporosis 1 (chief complaint)m ammo1 (chief complaint) InsomniaOsteoporos isChronic pain syndromeInconclusi ve mammogram 0 Rios Km. [address], [place], [address]. tel:[phone] OFFICE/OUTPA TIENT VISIT, [facility], [address], [place], [address], [place] tel:[phone] [facility] pain (chief complaint)i nsomnia1 (chief complaint) Chronic pain syndromeInsomnia 0 Gabriel Km. [address], [place], [address]. tel:[phone] OFFICE/OUTPA TIENT VISIT, [facility], [address], [place], [address], [place] tel:[phone] [facility] pain1 (chief complaint)o steopenia1 (chief complaint)C OPD1 (chief complaint) Chronic pain syndromeOth disrd of bone density and structure, other siteEmphysema 0 Gabriel Km. [address], [place], [facility]. [phone] OFFICE/OUTPA TIENT VISIT, [facility], [address], [place], [facility], tel:[phone] [facility] pain (chief complaint) Chronic pain syndrome May-0 7-202 0 Gabriel Mosher [address], [place], [facility]. tel:[phone] OFFICE/OUTPA TIENT VISIT, [facility], [address], [place], [facility], [place] tel:[phone] [facility] pain1 (chief complaint)o steopenia1 (chief complaint) Chronic pain syndromeOth disrd of bone density and structure, other site Apr-0 8-202 0 Gabriel Mosher [address], [place], [facility]. tel:[phone] OFFICE/OUTPA TIENT VISIT, [facility], [address], [place], [facility], tel:[phone] [facility] COPD1 (chief complaint)p ain (chief complaint)o steopenia1 (chief complaint)e ar pain1 (chief complaint) Otalgia, right earEmphysemaChroni c pain syndromeOth disrd of bone density and structure, other siteEncounter for oth screening for malignant neoplasm of breast Jan-1 0-202 0 Gabriel Mosher [address], [place], [facility]. [phone] Referring Provider: Km Rios [address], [place], [facility]. tel:[phone] OFFICE/OUTPA TIENT VISIT, [facility], [address] [place], [facility], [place] tel:[phone] [facility] chronic pain1 (chief complaint)o steopenia1 (chief complaint) Chronic pain syndromeOth disrd of bone density and structure, other site Nov-1 4-201 9 Gabriel Mosher [address], [address], [place], [address]. [phone] OFFICE/OUTPA TIENT VISIT, [facility], [address], [place], [address], [place] tel:[phone] [facility] chronic pain (chief complaint)l eukocytosis 1 (chief complaint)o steopenia1 (chief complaint) Oth disrd of bone density and structure, other siteChronic pain syndromeLeukocytos is 9 Gabriel Barbour. [address], [address], [place], [address]. [phone] Referring Provider: Lisseth [address], [place], [address]. tel:[phone] OFFICE/OUTPA TIENT VISIT, [facility], [address], [place], [address], [place] tel:[phone] [facility] HTN (chief complaint)c hronic pain1 (chief complaint)C OPD1 (chief complaint) EmphysemaEssential (primary) hypertensionChroni c pain syndromeOth disrd of bone density and structure, other site 9 Gabriel Barbour. [address], [place], [address]. [phone] Referring Provider: Lisseth [address], [place], [address]. tel:[phone] PREV VISIT, EST, 65 & OVER [facility], [address], [place], [address], [place] tel:[phone] [facility] physical (chief complaint) Encounter for general adult medical exam w abnormal findingsSolitary lung noduleEmphysemaEss ential (primary) hypertensionChroni c pain syndromeTobacco use 9 Gabriel Barbour. [address], [place], [address]. tel:[phone] Referring Provider: Km Rios [address], [place], [address]. tel:[phone] OFFICE/OUTPA TIENT VISIT, [facility], [address], [place], [address], [place] tel:[phone] [facility] chronic pain (chief complaint)v ertigo1 (chief complaint)l vane nodule1 (chief complaint) Epidemic vertigoSolitary lung noduleChronic pain syndromeEncounter for oth screening for malignant neoplasm of breast 9 Gabriel Barbour. [address], [place], [address]. tel:[phone] Referring Provider: Km Rios, [address], [place], [address]. tel:[phone] OFFICE/OUTPA TIENT VISIT, [facility], [address], [place], [address], [place] tel:[phone] [facility] chronic pain1 (chief complaint)h ip pain1 (chief complaint)l vane nodule1 (chief complaint)v ertigo1 (chief complaint) Epidemic vertigoSolitary lung noduleChronic pain syndromePain in unspecified hip 9 Gabriel Barbour. [address], [place], [address]. tel:[phone] Referring Provider: Lisseth [address], [place], [address]. tel:[phone] OFFICE/OUTPA TIENT VISIT, [facility], [address], [place], [address], [place] tel:[phone] [facility] back pain1 (chief complaint)l vane nodule1 (chief complaint) Chronic pain syndromeSolitary lung nodulePain in unspecified hipThoracogenic scoliosis, thoracolumbar region 9 Gabriel Barbour. [address], [place], [address]. tel:[phone] Referring Provider: Lisseth Grant [address], [place], [address]. tel:[phone] OFFICE/OUTPA TIENT VISIT, [facility], [address], [place], [address], [place] tel:[phone] [facility] lung nodule1 (chief complaint)c hronic pain1 (chief complaint)H TN (chief complaint) Solitary lung noduleEssential (primary) hypertensionChroni c pain syndromeEncounter for oth screening for malignant neoplasm of breast Feb-2 5 9 Gabriel Barbour. [address], [place], [address]. tel:[phone] Referring Provider: Lisseth Grant [address], [place], [address]. tel:[phone] OFFICE/OUTPA TIENT VISIT, [facility], [address], [place], [address], tel:[phone] [facility] lung nodule1 (chief complaint)c hronic pain1 (chief complaint) Solitary lung noduleEmphysemaChr onic pain syndromeEncounter for oth screening for malignant neoplasm of breast Jan-2 6201 9 Gabriel Barbour. [address], [place], [address]. tel:[phone] Referring Provider: Lisseth Grant [address], [place], [address]. tel:[phone] OFFICE/OUTPA TIENT VISIT, [facility], [address], [place], [address], [place] tel:[phone] [facility] chronic pain1 (chief complaint)C OPD1 (chief complaint)l vane nodule1 (chief complaint) EmphysemaSolitary lung noduleChronic pain syndromeTobacco use 2 0-201 8 Gabriel Barbour. [address], [place], [address]. tel:[phone] Referring Provider: Km Rios [address], [place], [address]. tel:[phone] OFFICE/OUTPA TIENT VISIT, [facility], [address], [place], [address], [place] tel:[phone] [facility] HTN (chief complaint)c hronic pain (chief complaint)C OPD1 (chief complaint)l vane nodule1 (chief complaint) EmphysemaSolitary lung noduleChronic pain syndromeEssential (primary) hypertension Oct-1 8-201 8 Gabriel Barbour. [address], [place], [address]. tel:[phone] Referring Provider: Lisseth Grant [address], [place], [address]. tel:[phone] OFFICE/OUTPA TIENT VISIT, [facility], [address], [place], [address], tel:[phone] [facility] COPD1 (chief complaint)l vane nodule1 (chief complaint)c hronic pain1 (chief complaint)s ick1 (chief complaint)t obacco1 (chief complaint) EmphysemaSolitary lung noduleAcute bronchitisChronic pain syndromeTobacco use 8 Gabriel Barbour. [address], [address], [place], [address]. [phone] Referring Provider: Lisseth Grant [address], [place], [facility]. tel:[phone] OFFICE/OUTPA TIENT VISIT, [facility], [address], [place], [address], [place] tel:[phone] [facility] HTn (chief complaint)l vane nodule1 (chief complaint)c hronic pain1 (chief complaint) Solitary lung noduleEmphysemaEss ential (primary) hypertensionChroni c pain syndrome 8 Gabriel Mosher [address], [place], [address]. tel:[phone] Referring Provider: Lisseth Grant [address], [place], [address]. tel:[phone] OFFICE/OUTPA TIENT VISIT, [facility], [address], [place], [address], [place] tel:[phone] [facility] chronic pain1 (chief complaint) Chronic pain syndrome 8 Gabriel Barbour. [address], [place], [address]. tel:[phone] Referring Provider: Lisseth Grant [address], [place], [address]. tel:[phone] PREV VISIT, EST, AGE 40-64 [facility], [address], [place], [facility], tel:[phone] [facility] Medicine PHysical (chief complaint) Encounter for general adult medical exam w abnormal findingsEmphysemaC hronic pain syndromeOth disrd of bone density and structure, unspecified siteEssential (primary) hypertensionTobacc o use 8 Gabriel Barbour. [address], [place], [facility]. tel:[phone] Referring Provider: Lisseth Grant [facility] [address], [place], [facility]. tel:[phone] OFFICE/OUTPA TIENT VISIT, [facility], [address], [place], [facility], [place] tel:[phone] [facility] chornic pain (chief complaint)o steopenia1 (chief complaint)t obacco1 (chief complaint) Chronic pain syndromeOth disrd of bone density and structure, other siteTobacco use 8 Gabriel Barbour. [address], [place], [facility]. tel:[phone] Referring Provider: Lisseth Grant [address], [place], [address]. tel:[phone] OFFICE/OUTPA TIENT VISIT, EST [facility], [address], [place], [address], [place] tel:[phone] [facility] osteopenia1 (chief complaint)c hronic pani1 (chief complaint)m lyric (chief complaint) Body mass index (BMI) 27.0-27.9, adultEmphysemaChro uzma pain syndromeOth disrd of bone density and structure, other siteTobacco use 8 Gabriel Montanez [address], [place], [address]. tel:[phone] Referring Provider: Lisseth Grant [address], [place], [address]. tel:[phone] OFFICE/OUTPA TIENT VISIT, [facility], [address], [place], [address], tel:[phone] [facility] chronic pain (chief complaint)a nxiety1 (chief complaint) Chronic pain syndromeGeneralize d Anxiety Disorder 6201 8 Gabriel Barbour. [address], [place], [address]. tel:[phone] Referring Provider: Km Rios, [address], [place], [address]. tel:[phone] OFFICE/OUTPA TIENT VISIT, [facility], [address], [place], [address], tel:[phone] [facility] COPD1 (chief complaint)b ack pain1 (chief complaint)t obacco1 (chief complaint)o steopenia1 (chief complaint)s inusitis1 (chief complaint) EmphysemaOth disrd of bone density and structure, unspecified siteChronic pain syndromeTobacco use 8 Gabriel Barbour. [address], [place], [address]. tel:[phone] Referring Provider: Km Rios, [address], [place], [address]. tel:[phone] OFFICE/OUTPA TIENT VISIT, [facility], [address], [place], [address], [place] tel:[phone] [facility] anxiety1 (chief complaint)c hronic pain1 (chief complaint) Chronic pain syndromeDepression 0201 8 Gabriel Barbour. [address], [place], [address]. tel:[phone] Referring Provider: Km Rios [address], [place], [address]. tel:[phone] OFFICE/OUTPA TIENT VISIT, [facility], [address], [place], [address], [place] tel:[phone] [facility] chronci pain (chief complaint)a nxiety1 (chief complaint)H TN (chief complaint) Chronic pain syndromeDepression Essential (primary) hypertension 3 7 Gabriel Barbour. [address], [place], [address]. tel:[phone] Referring Provider: Lisseth Grant [address], [place], [address]. tel:[phone] OFFICE/OUTPA TIENT VISIT, [facility], [address], [place], [facility], tel:[phone] [facility] anxiety1 (chief complaint)C OPD1 (chief complaint)b ack pain1 (chief complaint) EmphysemaChronic pain syndromeDepression 7 Gabriel Barbour. [address], [place], [facility]. tel:[phone] Referring Provider: Lisseth Grant [facility] [address], [place], [facility]. tel:[phone] OFFICE/OUTPA TIENT VISIT, [facility], [address], [place], [address], tel:[phone] [facility] chronic pain (chief complaint)d epression (chief complaint)d epression1 (chief complaint)o steopenia1 (chief complaint)s ob (chief complaint) Chronic pain syndromeShortness of breathDepressionOt h disrd of bone density and structure, other site 0 7 Gabriel Barbour. [address], [place], [facility]. [phone] Referring Provider: Lisseth Grant [address], [place], [address]. tel:[phone] OFFICE/OUTPA TIENT VISIT, [facility], [address], [place], [address], [place] tel:[phone] [facility] chronic pain1 (chief complaint)v ertigo1 (chief complaint) VertigoChronic pain syndrome Jul-0 7 Gabriel Barbour. [address], [place], [address]. [phone] Referring Provider: Km Rios, [address], [place], [address]. tel:[phone] OFFICE/OUTPA TIENT VISIT, EST [facility], [address], [place], [address], [phone] [facility] chronic pain1 (chief complaint)H TN (chief complaint)S OB (chief complaint)H ep C (chief complaint)c ataract (chief complaint) Essential (primary) hypertensionChroni c pain syndromeShortness of breathOther visual disturbances 7 Gabriel Barbour. [address], [place], [address]. [phone] Referring Provider: Lisseth Grant [address], [place], [address]. tel:[phone] PREV VISIT, EST, AGE 40-64 [facility], [address], [place], [address], [place] [phone] [facility] PHysical (chief complaint) Encounter for general adult medical exam w abnormal findingsOth disrd of bone density and structure, unspecified siteEssential (primary) hypertensionChroni c pain syndromeEncntr for general adult medical exam w/o abnormal findings 7 Gabriel Barbour. [address], [place], [address]. [phone] Referring Provider: Lisseth Grant [address], [place], [address]. tel:[phone] OFFICE/OUTPA TIENT VISIT, EST [facility], [address], [place], [address], [place] [phone] [facility] back pain1 (chief complaint)H TN (chief complaint) Essential (primary) hypertensionChroni c pain syndrome 7 Gabriel Barbour. [address], [address], [place], [address]. tel:[phone] Referring Provider: Lisseth Grant [address], [place], [address]. tel:[phone] OFFICE/OUTPA TIENT VISIT, [facility], [address], [place], [address], [place] tel:[phone] [facility] carpal tunnel1 (chief complaint)b ack pain1 (chief complaint)S OB1 (chief complaint) Carpal tunnel syndrome, bilateral upper limbsLow back painShortness of breath 7 Gabriel Barbour. [address], [address], [place], [address]. tel:[phone] Referring Provider: Km Rios, [address], [place], [address]. tel:[phone] OFFICE/OUTPA TIENT VISIT, [facility], [address], [place], [address], [place] tel:[phone] [facility] chronic pain (chief complaint)H TN (chief complaint)t obacco (chief complaint) Chronic pain syndromeTobacco useEssential (primary) hypertension 7 Gabriel Barbour. [address], [address], [place], [address]. tel:[phone] Referring Provider: Lisseth Grant [address], [place], [address]. tel:[phone] OFFICE/OUTPA TIENT VISIT, [facility], [address], [place], [address], [place] tel:[phone] [facility] chornic pain1 (chief complaint)o steopenia1 (chief complaint) Chronic pain syndromeOth disrd of bone density and structure, other site 7 Gabriel Barbour. [address], [address], [place], [address]. tel:[phone] Referring Provider: Lisseth Grant [address], [place], [address]. tel:[phone] OFFICE/OUTPA TIENT VISIT, [facility], [address], [place], [address], [place] tel:[phone] [facility] HTN (chief complaint)b ack pain1 (chief complaint) Essential (primary) hypertensionLow back pain 7 Gabriel Barbour. [address], [address], [place], [address]. tel:[phone] Referring Provider: Lisseth Grant [address], [place], [address]. tel:[phone] OFFICE/OUTPA TIENT VISIT, [facility], [address], [place], [address], tel:[phone] [facility] HTN (chief complaint)b ack pain1 (chief complaint)t obacco (chief complaint)h and numbness (chief complaint) Chronic pain syndromeParesthesi a of skinEssential (primary) hypertensionTobacc o use 6 Gabriel Barbour. [address], [address], [place], [address]. tel:[phone] Referring Provider: Lisseth Grant [address], [place], [address]. tel:[phone] OFFICE/OUTPA TIENT VISIT, [facility], [address], [place], [address], [place] tel:[phone] [facility] HTN (chief complaint)b ack pain1 (chief complaint) Essential (primary) hypertensionChroni c pain syndrome 6 Gabriel Barbour. [address], [place], [address]. tel:[phone] Referring Provider: Lisseth Grant [address], [place], [address]. tel:[phone] OFFICE/OUTPA TIENT VISIT, [facility], [address], [place], [address], [place] tel:[phone] [facility] back pain1 (chief complaint)H TN1 (chief complaint) Low back painEssential (primary) hypertension 6 Gabriel Barbour. [address], [place], [address]. tel:[phone] Referring Provider: Km Rios [address], [place], [address]. tel:[phone] OFFICE/OUTPA TIENT VISIT, [facility], [address], [place], [address], [place] tel:[phone] [facility] HTN (chief complaint)c hronic pain1 (chief complaint) Essential (primary) hypertensionChroni c pain syndrome Jul- 6 Gabriel Barbour. [address], [place], [address]. tel:[phone] Referring Provider: Km Rios, Lisseth [address], [place], [facility]. tel:[phone] OFFICE/OUTPA TIENT VISIT, [facility], [address], [place], [facility], [place] tel:[phone] [facility] chronic pain (chief complaint)o steopenia (chief complaint)t obacco (chief complaint) Oth disrd of bone density and structure, unspecified siteTobacco useChronic pain syndrome Jun- 6 Gabriel Barbour. [address], [place], [facility]. tel:[phone] Referring Provider: Lisseth Grant [address], [place], [facility]. tel:[phone] OFFICE/OUTPA TIENT VISIT, [facility], [address], [place], [address], [place] tel:[phone] [facility] back pain1 (chief complaint)t obacco (chief complaint) Chronic pain syndromeTobacco use 0 6 Gabriel Barbour. [address], [place], [address]. tel:[phone] Referring Provider: Lisseth Grant [address], [place], [facility]. tel:[phone] OFFICE/OUTPA TIENT VISIT, [facility], [address], [place], [address], [place] tel:[phone] [facility] back pain1 (chief complaint)H TN (chief complaint)t obacco1 (chief complaint) Chronic pain syndromeEssential (primary) hypertensionTobacc o use 0 6 Gabriel Barbour. [address], [place], [address]. tel:[phone] Referring Provider: Lisseth Grant [address], [place], [address]. tel:[phone] OFFICE/OUTPA TIENT VISIT, [facility], [address], [place], [address], tel:[phone] [facility] back pain1 (chief complaint)t obacco (chief complaint) Chronic pain syndromeTobacco use 6 Gabriel Barbour. [address], [place], [address]. tel:[phone] Referring Provider: Lisseth [address], [place], [address]. tel:[phone] OFFICE/OUTPA TIENT VISIT, [facility], [address], [place], [address], [place] tel:[phone] [facility] back pain1 (chief complaint)H TN (chief complaint) Other chronic painEssential (primary) hypertension 6 Gabriel Barbour. [address], [address], [place], [address]. tel:[phone] Referring Provider: Lisseth Grant [address], [place], [address]. tel:[phone] OFFICE/OUTPA TIENT VISIT, [facility], [address], [place], [address], [place] tel:[phone] [facility] leg pain1 (chief complaint)H TN (chief complaint)c hronic pain (chief complaint)t obacco (chief complaint) Pain in right legChronic pain syndromeEssential (primary) hypertensionTobacc o use 0 6 Gabriel Barbour. [address], [place], [address]. tel:[phone] Referring Provider: Km Rios, [address], [place], [address]. tel:[phone] OFFICE/OUTPA TIENT VISIT, [facility], [address], [place], [address], tel:[phone] [facility] osteopenia (chief complaint)H TN (chief complaint)c hronic pain (chief complaint)t obacco (chief complaint) Oth disrd of bone density and structure, other siteEssential (primary) hypertensionChroni c pain syndromeTobacco use 6 Gabriel Barbour. [address], [place], [address]. [phone] Referring Provider: Lisseth Grant [address], [place], [facility]. tel:[phone] PREV VISIT, EST, AGE 40-64 [facility], [address], [place], [address], [place] tel:[phone] [facility] Physical (chief complaint) Encntr for general adult medical exam w/o abnormal findings 6 Gabriel Barbour. [address], [place], [address]. tel:[phone] Referring Provider: Lisseth Grant [address], [place], [address]. tel:[phone] OFFICE/OUTPA TIENT VISIT, EST [facility], [address], [place], [address], [place] tel:[phone] [facility] chronic pain1 (chief complaint)m ammogram1 (chief complaint) Chronic pain syndromeEncounter for oth screening for malignant neoplasm of breast 6 Gabriel Barbour. [address], [address], [place], [address]. [phone] Referring Provider: Lisseth Grant [address], [place], [address]. tel:[phone] OFFICE/OUTPA TIENT VISIT, EST [facility], [address], [place], [address], [place] tel:[phone] [facility] chronic pain1 (chief complaint)H TN1 (chief complaint)v itamin d1 (chief complaint) Chronic pain syndromeEssential (primary) hypertension 5 Gabriel Barbour. [address], [place], [facility]. tel:[phone] Referring Provider: Lisseth Grant [address], [place], [facility]. tel:[phone] OFFICE/OUTPA TIENT VISIT, [facility], [address], [place], [facility], tel:[phone] [facility] chronic pain1 (chief complaint)H TN (chief complaint)v itamin d1 (chief complaint)t obacco (chief complaint) Other spondylosis, lumbar regionOther forms of scoliosis, thoracolumbar regionEssential (primary) hypertensionTobacc o use 5 Gabriel Barbour. [address], [place], [facility]. tel:[phone] Referring Provider: Lisseth Grant [address] [place], [facility]. tel:[phone] OFFICE/OUTPA TIENT VISIT, [facility], [address] [place], [place], [facility], tel:[phone] [facility] lumago (chief complaint)H TN (chief complaint) Dietary surveillance and counselingEssentia l (primary) hypertensionOther spondylosis, lumbar region 5 Gabriel Barbour. [address], [place], [facility]. tel:[phone] Referring Provider: Lisseth Grant [address] [place], [facility]. tel:[phone] OFFICE/OUTPA TIENT VISIT, [facility], [address], [place], [facility], tel:[phone] [facility] back pain (chief complaint)h ematuria (chief complaint)P ulmonary nodule (chief complaint)t obacco (chief complaint)a nxiety (chief complaint) Dietary surveillance and counselingSolitary pulmonary noduleHematuria, unspecifiedLumbago Tobacco abuse 5 Gabriel Barbour. [address], [place], [facility]. [phone] Referring Provider: Lisseth Grant [address], [place], [facility]. tel:[phone] OFFICE/OUTPA TIENT VISIT, [facility], [address], [place], [facility], tel:[phone] [facility] back apin (chief complaint)H TN (chief complaint)p apillar stenosis (chief complaint)t obacco (chief complaint) Unspecified essential hypertensionOther chronic painCholangitisDie tary surveillance and counselingTobacco abuse 5 Gabriel Barbour. [address], [place], [facility]. [phone] Referring Provider: Lisseth Grant [address], [place], [facility]. tel:[phone] OFFICE/OUTPA TIENT VISIT, [facility], [address] [place], [facility], tel:[phone] [facility] HTN (chief complaint)s colioisis (chief complaint)c olon polyp (chief complaint)h ematuria (chief complaint)l eg swelling (chief complaint) Dietary surveillance and counselingOther chronic painScoliosis [and kyphoscoliosis], idiopathicUnspecif ied essential hypertensionCholan gitis 5 Gabriel Barbour. [address], [place], [address]. [phone] Referring Provider: Lisseth Grant [facility] [place], [facility]. tel:[phone] OFFICE/OUTPA TIENT VISIT, [facility], [address], [place], [address], [place] tel:[phone] [facility] lumbago (chief complaint)G I (chief complaint)h ematuria (chief complaint)e chani (chief complaint) Dietary surveillance and counselingUnspecif ied essential hypertensionEdemaS coliosis 5 Gabriel Barbour. [address], [address], [place], [address]. tel:[phone] Referring Provider: Lisseth Grant [address], [place], [address]. tel:[phone] OFFICE/OUTPA TIENT VISIT, [facility], [address], [place], [address], tel:[phone] [facility] HTN (chief complaint)b ack pain (chief complaint) Hypertension, UnspecifiedLumbago 5 Gabriel Barbour. [address], [place], [address]. [phone] Referring Provider: Lisseth Grant [address], [place], [facility]. tel:[phone] OFFICE/OUTPA TIENT VISIT, [facility], [address], [place], [address], [place] tel:[phone] [facility] COPD (chief complaint)c holangitis (chief complaint)l vane nodule (chief complaint) COPDCholangitisSOL ITARY PULMONRY NODULE 5 Gabriel Barbour. [address], [place], [address]. [phone] Referring Provider: Lisseth Grant [address], [place], [address]. tel:[phone] OFFICE/OUTPA TIENT VISIT, [facility], [address], [place], [address], [place] tel:[phone] [facility] back pain (chief complaint)h ematuria (chief complaint) Scoliosis associated with other conditionsLumbagoH EMATURIA NOSOpioid type dependence, unspecified use 5 Gabriel Barbour. [address], [place], [address]. tel:[phone] Referring Provider: Lisseth Grant [address], [place], [address]. tel:[phone] OFFICE/OUTPA TIENT VISIT, [facility], [address], [place], [address], tel:[phone] [facility] Medicine HTN (chief complaint)b ack pain (chief complaint)h ematuria (chief complaint) LumbagoHEMATURIA NOSHypertension, Unspecified Jan-0 3-201 5 Gabriel Barbour. [address], [place], [facility]. tel:[phone] Referring Provider: Km Rios, Lisseth [address], [place], [facility]. tel:[phone] PREV VISIT, EST, AGE 40-64 [facility], [address], [place], [facility], [place] tel:[phone] [facility] Medicine Physical (chief complaint) Routine Medical ExamRoutine Medical Exam 2-201 5 Gabriel Barbour. [address], [place], [facility]. tel:[phone] Referring Provider: Km Rios, Lisseth [address], [place], [facility]. tel:[phone] OFFICE/OUTPA TIENT VISIT, [facility], [address], [place], [address], [place] tel:[phone] [facility] Medicine HTN (chief complaint)c hornic pain (chief complaint) Dietary surveillance and counselingHyperten sam, UnspecifiedCHRONIC PAIN [facility] 7-201 4 Gabriel Barbour. [address], [place], [address]. tel:[phone] Referring Provider: Lisseth Grant [address], [place], [address]. tel:[phone] OFFICE/OUTPA TIENT VISIT, [facility], [address], [place], [address], [place] tel:[phone] [facility] Medicine HTN (chief complaint)c hronic pain (chief complaint)s ick (chief complaint) Dietary surveillance and counselingHyperten sam, UnspecifiedCHRONIC PAIN NECAcute upper respiratory infections of other multiple sites 7- 4 Gabriel Barbour. [address], [place], [address]. tel:[phone] Referring Provider: Lisseth Grant [address], [place], [address]. tel:[phone] OFFICE/OUTPA TIENT VISIT, [facility], [address], [place], [address], tel:[phone] [facility] HTN (chief complaint)c hornic pain (chief complaint) Dietary surveillance and counselingHyperten sam, UnspecifiedCHRONIC PAIN NEC 2- 3 Gabriel Barbour. [address], [place], [address]. tel:[phone] Referring Provider: Lisseth Grant [address], [place], [address]. tel:[phone] OFFICE/OUTPA TIENT VISIT, [facility], [address], [place], [address], [place] tel:[phone] [facility] HTN (chief complaint)c hornic pain (chief complaint) Dietary surveillance and counselingHyperten sam, UnspecifiedScolios is associated with other conditionsCHRONIC PAIN NEC 2- 3 Gabriel Barbour. [address], [place], [address]. tel:[phone] Referring Provider: Lisseth [address], [place], [address]. tel:[phone] Family History Family Member Type Diagnosis Age At Onset Mother Problem (finding) Unknown Disease Brother Problem (finding) liver failure Father Problem (finding) Hypertension Payers Payer name Insurance type Covered alliance party ID Authoriza tion(s) No Information Social History Type Description Quantity Date Captured Comments Alcohol Use Details No Caffeine Use Details Unknown Tobacco Use Status Heavy cigarette smok er (20-39 cigs/day) Smoking Status Heavy tobacco smoker Smoking Tobacco Use Details Cigarette: Age Started: 20, Years Used 40 Cigarette: 1 Packs per day, Pack Year: 42 Sex Female Vital Signs Date / Time: Height Weight BMI Pulse Rate Blood Pressure Temperature Respiratory Rate Body Surface Area Head Circumference BMI percentile Pulse Ox Inhaled Ox 2:08 PM 60.00 in 146.80 lbs 28.6 7 kg/m eter (2) 90 /min 133/74 mm[Hg] 98.1 F 16 /min Chief Complaint And Reason For Visit From encounter dated '06/22/2021 14:06'. HLP (chief complaint). Description: Pt has HLP Pt stopped Crestor on her own but she never told me until i asked her last month Pt states that she has mild myalgia with crestor osteoporosis1 (chief complaint). Description: Pt has osteoporosis. Pt takes calcium and D and fosamax Pt still has not done bone density yet. Pt is noncompliant . pain (chief complaint). Description: Pt has chronic back pain due to dDD and scoliosis pt denies any loss of bladder control. pt failed NSAID and ultram. Pt takes norco PRn for pain and doing ok. . Pt has neuropathy symptoms around hand and feet. Pt failed neurontin. Pt is on lyrica is helping her symptoms. Pt states that prednisone did help her pain Plan Of Treatment Date Type Action Status Goal Tobacco cessation counseling completed Goal Tobacco cessation counseling completed Goal Special diet education compl eted Goal Tobacco cessation counseling completed Goal Special diet education compl eted Goal Tobacco cessation counseling completed Goal Special diet education compl eted Goal Tobacco cessation counseling completed Goal Special diet education compl eted Goal Tobacco cessation counseling completed Goal Special diet education compl eted Goal Special diet education compl eted Goal Tobacco cessation counseling completed Goal Tobacco cessation counseling completed Goal Special diet education compl eted Goal Tobacco cessation counseling completed Goal Tobacco cessation counseling completed Goal Tobacco cessation counseling completed Goal Special diet education compl eted Goal Special diet education compl eted Goal Special diet education compl eted Goal Special diet education compl eted Goal Special diet education compl eted Goal Special diet education compl eted Goal Special diet education compl eted Goal Special diet education compl eted Goal Tobacco cessation counseling completed Goal Tobacco cessation counseling completed Goal Tobacco cessation counseling completed Goal Tobacco cessation counseling completed Goal Tobacco cessation counseling completed Goal Tobacco cessation counseling completed Goal Tobacco cessation counseling completed Goal Tobacco cessation counseling completed Goal Tobacco cessation counseling completed Referral Ordered: Pain Medicine (related to Chronic pain syndrome) ordered Referral Ordered: Referrals: Pain Medicine. Evaluate and treat ordered Referral Ordered: HAND XRAY 3+ VIEWS ordered Referral Ordered: US EXAM, ABDOM, COMPLETE ordered Referral Referred To: Ángel Reyes [address], [address] [phone] Ordered: Referrals: Ángel Reyes. Evaluate and treat ordered Referral Ordered: COLONOSCOPY AND BIOPSY ordered Referral Ordered: MAMMOGRAM, ONE BREAST ordered Referral Ordered: CT THORAX W/DYE ordered Referral Ordered: Pulmonology (related to Solitary lung nodule) ordered Referral Ordered: AP PELVIS AND BILATERAL HIPS XRAY ordered Referral Ordered: Pulmonology (related to Solitary lung nodule) ordered Referral Ordered: TUMORIMAGE PET/CT SKUL-THIGH ordered Referral Ordered: Referrals: Pulmonology. Evaluate and treat ordered Referral Ordered: TUMOR IMAGE PET/CT, LIMITED ordered Referral Ordered: DAKOTAH CASE (related to Other visual disturbances) ordered Referral Referred To: DAKOTAH CASE [address] [place], [address] [id number] Ordered: Referrals: DAKOTAH CASE. Evaluate and treat ordered Referral Ordered: Murphy Barth (related to Carpal tunnel syndrome, bilateral upper limbs) ordered Referral Referred To: Rogersupriya Murphy [address] [place], [address] [phone] Ordered: Referrals: RogerMurphy epps. Evaluate and treat ordered Referral Ordered: MOTOR NERVE CONDUCTION TEST ordered Referral Ordered: DXA BONE DENSITY, AXIAL ordered Referral Ordered: US VENOUS DOPPLER ordered Referral Ordered: [facility] ordered Referral Ordered: CT THORAX W/O DYE ordered Referral Ordered: Referral: [facility]. ordered Referral Ordered: CT ABDOMEN W/DYE ordered Referral Ordered: Referral: Urology. Evaluate and treat. ordered Referral Ordered: Referral: Neurosurgery. ordered Referral Ordered: MAMMOGRAM, SCREENING ordered Referral Ordered: SCIOLIOSIS-SUPINE XRAY ordered History Of Present Illness Encounter Date Complaint History Of Prese nt Illness HLP Pt has HLP Pt st opped Crestor on her own but she never told me until i asked her last month Pt states that she has mild myalgia with crestor osteoporosis Pt has osteoporo sis. Pt takes calcium and D and fosamax Pt still has not done bone density yet. Pt is noncompliant . pain Pt has chronic b ack pain due to dDD and scoliosis pt denies any loss of bladder control. pt failed NSAID and ultram. Pt takes norco PRn for pain and doing ok. . Pt has neuropathy symptoms around hand and feet. Pt failed neurontin. Pt is on lyrica is helping her symptoms. Pt states that prednisone did help her pain osteoporosis Pt has osteoporo sis. Pt has been taking calcium and D and fosamax since May of last year. pt has not done bone density yet pain Pt has chronic b ack pain due to dDD and scoliosis pt denies any loss of bladder control. pt failed NSAID and ultram. Pt takes norco PRn for pain and doing ok. . Pt has neuropathy symptoms around hand and feet. Pt failed neurontin. Pt is on lyrica is helping her symptoms. Pt still has not done x ray of hand yet. Pt c/o worsening low back pain wit left sciatica and left leg numbness and tingling Pt denies any injury colon polyp1 Pt has hyperplas tic colon polyp back in 2014 Pt denies any GI issue. Pt still has not set up maine for colonoscopy yet weight gain1 Pt has been gain ing weight Pt denies any diet change Pt has been insendentary. HLP pt has HLP Pt is noncompliant and she stopped taking crestor on her own. Pt states that it caused her to have numbness and tingling on her hand?? Pt denies any myalgia. Pt states that since she stopped crestor, her hand symptoms resolved. Pt stopped taking crestor two months ago pain Pt has chronic b ack pain due to dDD and scoliosis pt denies any worsening pain pt denies any loss of bladder control. pt failed NSAID and ultram. Pt takes norco PRn for pain and doing ok. Pt has mild leg numbness but is stable. Pt has neuropathy symptoms around hand and feet. Pt failed neurontin. Pt is on lyrica is helping her symptoms. Pt still has not done x ray of hand yet osteoporosis1 Pt has osteoporo sis. Pt has been on fosamax and calcium and D for one year Pt denies any jaw pain. Pt denies any tooth problem. Pt denies any fx colon polyp1 Pt has history o f hyperplastic polyp back in 2014. pt denies any GI issue. Pt told me she contacted GI and is waiting for call back regarding colonoscopy pain1 Pt has chronic b ack pain due to dDD and scoliosis pt denies any worsening pain pt denies any loss of bladder control. pt failed NSAID and ultram. Pt takes norco PRn for pain and doing ok. Pt has mild leg numbness but is stable. Pt has neuropathy symptoms around hand and feet. Pt failed neurontin. Pt started lyrica is helping her symptoms. Pt still has not done x ray of hand yet colon polyp1 Pt has hyperplas tic polyp on colonoscopy 2014. Pt denies any GI issue pt is very noncompliant. Pt still has not set up maine with GI yet. Pt denies any lower GI issue or bleeding HLP Pt has HLP .Pt t akes crestor 10 mg daily and her lipid profile has not improved .Pt denies any myalgia LFt Pt has borderlin e high LFT Pt denies any abd pain or jaundice . COPD Pt has CPOD. Pt still smoking .Pt uses incruse and ventolin PRN .Pt uses ventolin 1-2 per week Pt denies any acute sob, hemoptysis, cough pain Pt has chronic b ack pain due to dDD and scoliosis pt denies any worsening pain pt denies any loss of bladder control. pt failed NSAID and ultram. Pt takes norco PRn for pain and doing ok. Pt has mild leg numbness but is stable. Pt has neuropathy symptoms around hand and feet. Pt failed neurontin. Pt started lyrica is helping her symptoms. Pt states that she has been having more pain, especially at night both of her hand and finger. Pt has numbness and tingling around the base of her thumb. Pt also notices some finger deformity. Pt has not done x ray yet. Pt denies any weakness. pain Pt has chronic b ack pain due to dDD and scoliosis pt denies any worsening pain pt denies any loss of bladder control. pt failed NSAID and ultram. Pt takes norco PRn for pain and doing ok. Pt has mild leg numbness but is stable. Pt has neuropathy symptoms around hand and feet. Pt failed neurontin. Pt started lyrica last month and is helping her symptoms.. Pt states that she has been having more pain, especially at night both of her hand and finger. Pt has numbness and tingling around the base of her thumb. Pt also notices some finger deformity. neuropathy Pt had neuropath y pain both hand and feet. Pt also has arthritis change around fingers. Pt c/o hand pain, worse at night. mammo Pt needs diagnos tic left mammo with ultrasound. Pt denies any breast pain or nodule or discoloration or any axillary lymph or any nipple discharge HLP Pt takes crestor . Pt denies any myalgia Pt is in [place] and she has not done lab yet chronic pain1 Pt has chronic b ack pain due to dDD and scoliosis pt denies any worsening pain pt denies any loss of bladder control. pt failed NSAID and ultram. Pt takes norco PRn for pain and doing ok. Pt has mild leg numbness but is stable. Pt has neuropathy symptoms around hand and feet. Pt failed neurontin. Pt started lyrica last month and is helping her symptoms pain Pt has chronic b ack pain due to dDD and scoliosis pt denies any worsening pain pt denies any loss of bladder control. pt failed NSAID and ultram. Pt takes norco PRn for pain and doing ok. Pt has mild leg numbness but is stable. Pt has neuropathy symptoms around hand and feet. Pt failed neurontin. pain1 Pt has chronic b ack pain due to dDD and scoliosis pt denies any worsening pain pt denies any loss of bladder control. pt failed NSAID and ultram. Pt takes norco PRn for pain and doing ok. Pt has mild leg numbness but is stable HLP Pt has HLP Pt ta jonny webber Pt denies any myalgia. liver1 Pt denies any ab d pain or jaundice pt had benign liver ultrasound. kidney1 Pt has mild bila teral kidney atrophy on ultrasound Pt has normal UO and renal function . pain Pt has chronic b ack pain due to dDD and scoliosis pt denies any worsening pain pt denies any loss of bladder control. pt failed NSAID and ultram. Pt takes norco PRn for pain and doing ok. Pt has mild leg numbness but is stable LFT Pt has high LFT .Pt denies any abd pain or jaundice. Pt has not done liver ultrasound yet. pain Pt has chronic b ack pain due to dDD and scoliosis pt denies any worsening pain pt denies any loss of bladder control. pt failed NSAID and ultram. Pt takes norco PRn for pain and doing ok. Pt has mild leg numbness but is stable HLP Pt has HLP Pt to lerating crestor ok Pt denies any myalgia colon polyp1 Pt has hyperplas tic colon polyp Pt denies any Gi bleeding. Pt denies any lower Gi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 any history of automatic fracture tobacco Pt smokes close to 1 PPD. Pt has been taking zyban here and there and PRN only? lumago Pt has chronic l ow back pain due to scoliosis and degenerative disease. Pt is not really a surgical candidate Pt takes norco for pain PRN. Pt denies any wosrening pain. Pt denies any loss of bowel or bladder control HTN Pt takse norvac, hcTZ and losartan/ Her BP is ok today back pain Additional infor mation: PT has chronic back pain. Pt denies any loss of yuriy or bladder control. Pt decided against any treatment and is opt to take pain meds PRN. Pt denies any worsening pain. hematuria Pt has hematuria . Pt had negative cysto per pt recently by urology. Pt was told to follow up in one year per patient Pulmonary nodule Pt has pulmonar y nodule Pt still smokes. Pt did not try patch. tobacco Pt smokes about one pack per day anxiety The patient pres ents with anxious/fearful thoughts but denies fatigue. The patient denies any vomiting. Additional information: Pt c/o feeling depressed and anxious for long time. Pt feels poor mood and lack of motivation. Pt denies any suicidal thought. back apin Pt has chronic L BP and she has scoliosis. Pt seen neurosugery who plans to do a myelogram. Pt has appointmetn tomorrow but decided to cancel it due to procedure itselt and the fact that there will be no effective treatment for her back isue per neursougeyr. Pt denies any loss of bowel or bladder control. Pt c/o left sciatica HTN Pt takes HCTZ, l osartan and norvasc for HTN. 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 Pt denies any abd pain now tobacco Pt smokes about one pack per day for many years. Pt denies any SOB HTN Pt takes losarta n, norvasc and HCTZ> Her BP is slighlty high today. Pt denies any chest apin or headache scolioisis Pt will call [facility] at [facility] for appointment. Pt recevied a call for records, which we already sent colon polyp Pt has colon selin yp. Pt is waiting for biospy hematuria Pt is seeing uro logy now. No UTI symptoms leg swelling resolved. Pt had negative DVT testing lumbago Pt has chornic L BP. Pt denies any loss of bowel ro bladder control. GI Pt is seeing GI physician now for CT finding and she will have lab work and ERCP/MRCP and colonoscopy soon hematuria Pt is seeing Dr. Robertson now. No UTI symptoms edema Pt c/o left lowe r leg swelling and left leg pain since one week. Pt denies any recent travel or bed rest. Pt denies any SOB or chest pain. Pt denies any claudication Instructions Date Instruction Additional Infor hawk Special diet education Related t o Body mass index (BMI) 28.0-28.9, adult Quit smoking Related to Chron ic pain syndrome Weight management Related to Chr onic pain syndrome Special diet education Related t o Body mass index (BMI) 28.0-28.9, adult Quit smoking Related to Oth d isrd of bone density and structure, other site Special diet education Related t o Body mass index (BMI) 27.0-27.9, adult Special diet education Related t o Body mass index (BMI) 27.0-27.9, adult Increase physical activity Relat ed to Encounter for general adult medical exam w abnormal findings Quit smoking Related to Encou nter for general adult medical exam w abnormal findings Weight management Related to Enc ounter for general adult medical exam w abnormal findings Special diet education Related t o Body mass index (BMI) 27.0-27.9, adult Quit smoking Related to Epide eb vertigo Special diet education Related t o Body mass index (BMI) 27.0-27.9, adult Quit smoking Related to Epide eb vertigo Quit smoking Related to Chron ic pain syndrome Special diet education Related t o Body mass index (BMI) 27.0-27.9, adult Quit smoking Related to Solit fidelia lung nodule Quit smoking Related to Solit fidelia lung nodule Special diet education Related t o Body mass index (BMI) 28.0-28.9, adult Quit smoking Related to Emphy sema Special diet education Related t o Body mass index (BMI) 28.0-28.9, adult Quit smoking Related to Emphy sema Special diet education Related t o Body mass index (BMI) 28.0-28.9, adult Increase physical activity Relat ed to Emphysema Quit smoking Related to Emphy sema Quit smoking Related to Solit fidelia lung nodule Special diet education Related t o Body mass index (BMI) 27.0-27.9, adult Special diet education Related t o Body mass index (BMI) 28.0-28.9, adult Quit smoking Related to Chron ic pain syndrome Quit smoking Related to Encou nter for general adult medical exam w abnormal findings Weight management Related to Enc ounter for general adult medical exam w abnormal findings Special diet education Related t o Body mass index (BMI) 27.0-27.9, adult Quit smoking Related to Chron ic pain syndrome Special diet education Related t o Body mass index (BMI) 27.0-27.9, adult Quit smoking Related to Emphy sema Quit smoking Related to Gener alized Anxiety Disorder Prescribed Activity and Exercise Education Related to Dietary Surveillance and Counseling Prescribed Diet Educ ation/Lifestyle Education Regarding Diet Related to Dietary Surveillance and Counseling Quit smoking Related to Emphy sema Prescribed Activity and Exercise Education Related to Dietary Surveillance and Counseling Prescribed Diet Educ ation/Lifestyle Education Regarding Diet Related to Dietary Surveillance and Counseling Increase physical activity Relat ed to Chronic pain syndrome Quit smoking Related to Chron ic pain syndrome Weight management Related to Chr onic pain syndrome Prescribed Activity and Exercise Education Related to Dietary Surveillance and Counseling Prescribed Diet Educ ation/Lifestyle Education Regarding Diet Related to Dietary Surveillance and Counseling Increase physical activity Relat ed to Chronic pain syndrome Quit smoking Related to Chron ic pain syndrome Weight management Related to Chr onic pain syndrome Quit smoking Related to Emphy sema Prescribed Diet Educ ation/Lifestyle Education Regarding Diet Related to Dietary Surveillance and Counseling Prescribed Activity and Exercise Education Related to Dietary Surveillance and Counseling Prescribed Activity and Exercise Education Related to Dietary Surveillance and Counseling Prescribed Diet Educ ation/Lifestyle Education Regarding Diet Related to Dietary Surveillance and Counseling Increase physical activity Relat ed to Chronic pain syndrome Quit smoking Related to Chron ic pain syndrome Weight management Related to Chr onic pain syndrome Quit smoking Related to Verti go Prescribed Activity and Exercise Education Related to Dietary Surveillance and Counseling Prescribed Diet Educ ation/Lifestyle Education Regarding Diet Related to Dietary Surveillance and Counseling Follow a low sodium diet. Relate d to Essential (primary) hypertension Quit smoking Related to Chron ic pain syndrome Prescribed Activity and Exercise Education Related to Dietary Surveillance and Counseling Prescribed Diet Educ ation/Lifestyle Education Regarding Diet Related to Dietary Surveillance and Counseling Prescribed Activity and Exercise Education Related to Dietary Surveillance and Counseling Prescribed Diet Educ ation/Lifestyle Education Regarding Diet Related to Dietary Surveillance and Counseling Prescribed Activity and Exercise Education Related to Dietary Surveillance and Counseling Prescribed Diet Educ ation/Lifestyle Education Regarding Diet Related to Dietary Surveillance and Counseling Prescribed Activity and Exercise Education Related to Dietary Surveillance and Counseling Prescribed Diet Educ ation/Lifestyle Education Regarding Diet Related to Dietary Surveillance and Counseling Prescribed Diet Educ ation/Lifestyle Education Regarding Diet Related to Dietary Surveillance and Counseling Prescribed Activity and Exercise Education Related to Dietary Surveillance and Counseling Prescribed Activity and Exercise Education Related to Dietary Surveillance and Counseling Prescribed Diet Educ ation/Lifestyle Education Regarding Diet Related to Dietary Surveillance and Counseling Prescribed Activity and Exercise Education Related to Dietary Surveillance and Counseling Prescribed Diet Educ ation/Lifestyle Education Regarding Diet Related to Dietary Surveillance and Counseling Prescribed Activity and Exercise Education Related to Dietary Surveillance and Counseling Prescribed Diet Educ ation/Lifestyle Education Regarding Diet Related to Dietary Surveillance and Counseling Prescribed Diet Educ ation/Lifestyle Education Regarding Diet Related to Dietary Surveillance and Counseling Prescribed Activity and Exercise Education Related to Dietary Surveillance and Counseling Prescribed Activity and Exercise Education Related to Dietary Surveillance and Counseling Prescribed Diet Educ ation/Lifestyle Education Regarding Diet Related to Dietary Surveillance and Counseling Prescribed Activity and Exercise Education Related to Dietary Surveillance and Counseling Prescribed Diet Educ ation/Lifestyle Education Regarding Diet Related to Dietary Surveillance and Counseling Prescribed Activity and Exercise Education Related to Dietary Surveillance and Counseling Prescribed Diet Educ ation/Lifestyle Education Regarding Diet Related to Dietary Surveillance and Counseling Prescribed Activity and Exercise Education Related to Dietary Surveillance and Counseling Prescribed Diet Educ ation/Lifestyle Education Regarding Diet Related to Dietary Surveillance and Counseling Prescribed activity/ exercise education Related to Dietary surveillance and counseling Special diet education Related t o Dietary surveillance and counseling Decrease caloric intake Related to Dietary surveillance counseling Dietary counseling Related to Di etary surveillance counseling Dietary counseling Related to Di etary surveillance counseling Decrease caloric intake Related to Dietary surveillance counseling Dietary counseling Related to Di etary surveillance counseling Decrease caloric intake Related to Dietary surveillance counseling Dietary counseling Related to Di etary surveillance counseling Decrease caloric intake Related to Dietary surveillance counseling Assessments Type Assessment Date assessment Hyperlipidemia assessment Osteoporosis assessment Polyp of colon assessment Chronic pain syndrome Mental Status Date Cognitive Assessment Orientation - [place] ed to time, place, person, situation.
== END 2024-10-17 12:15 | disposition home or self-care (01) ==
PROVIDERS: Visit Provider Pain Medicine Interventional Pain Medicine
DX: M47.22 Other spondylosis with radiculopathy, cervical region (principal); M47.23 Other spondylosis with radiculopathy, cervicothoracic region; M50.123 Cervical disc disorder at C6-C7 level with radiculopathy; M50.122 Cervical disc disorder at C5-C6 level with radiculopathy
CPT/HCPCS: 72052